=== PATIENT | male | born 1990 | race Two or more races ===

== ENCOUNTER 2019-08-22 05:55 | Emergency (ER) | payer SELFPAY ==
[~2019-08-22] VITALS: Ht 170.2 cm; Wt 85.0 kg
--- NOTE | 2019-08-22 06:07 | NUR ---
PT AMBULATORY TO ROOM, STEADY GAIT.
[2019-08-22] MEDS ORDERED: POTASSIUM (06:15)
--- NOTE | 2019-08-22 06:16 | NUR ---
THIS PT IS COMING FROM HOME. HE FEELS WEAK. PREVIOUSLY, AROUND AGE 21, HE HAD HYPOKALEMIA, FOR WHICH HE HAD TO BE HOSPITALIZED, PT STATES THIS FEELS THE SAME. CURRENTLY THIS PT IS LAYING IN BED, CONNECTED TO CARDIAC, O2 AND BP MONITORS, VSS, RESPIRATIONS EVEN AND UNLABORED, DENIES PAIN. WILL CONTINUE TO MONITOR AND WATCH FOR ORDERS, ERP HAS BEEN TO BEDSIDE.
[2019-08-22 06:19] VITALS: BP 133/88
[2019-08-22 06:47] LABS: BASOPHILS # (AUTO) 0.03 x10^3/uL (0-0.1); BASOPHILS % (AUTO) 1 % (0-1); EOSINOPHILS # (AUTO) 0.16 x10^3/uL (0-0.4); EOSINOPHILS % (AUTO) 3 % (1-7); LYMPHOCYTES # (AUTO) 2.01 x10^3/uL (1-3.4); LYMPHOCYTES % (AUTO) 39 % (22-44); MD NO; MEAN CORPUSCULAR HEMOGLOBIN 32.3 pg (27.5-34.5); MEAN CORPUSCULAR HGB CONC 35.1 g/dL (33.2-36.2); MEAN CORPUSCULAR VOLUME 92.2 fL (81-97); MEAN PLATELET VOLUME 7.6 fL (7.4-10.4); MONOCYTES # (AUTO) 0.37 x10^3/uL (0.2-0.8); MONOCYTES % (AUTO) 7 % (2-9); NEUTROPHILS # (AUTO) 2.59 x10^3/uL (1.8-6.8); NEUTROPHILS % (AUTO) 50 % (42-75); PLATELET COUNT 232 x10^3/uL (130-400); RED BLOOD COUNT 4.42 x10^6/uL (4.38-5.82); RED CELL DISTRIBUTION WIDTH 12.7 % (9.4-14.8)
[2019-08-22 06:58] LABS: ALANINE AMINOTRANSFERASE 51 U/L (12-78); ALBUMIN 3.5 g/dL (3.4-5.0); ANION GAP 10 mmol/L (5-15); CALCIUM 8.2 mg/dL (8.5-10.1); CHLORIDE 113 mmol/L (98-107); CREATININE 0.83 mg/dL (0.7-1.3)
--- NOTE | 2019-08-22 06:59 | NUR ---
BEDSIDE REPORT GIVEN TO SARAHI MELENDEZ. PT CONDITION UNCHANGED. CALL LIGHT IN REACH.
--- NOTE | 2019-08-22 07:00 | NUR ---
[facility] BEDSIDE HAND-OFF REPORT RECEIVED FROM SARAHI ESTEVEZ. ASSUMING CARE OF PATIENT.
[2019-08-22 07:08] LABS: ALKALINE PHOSPHATASE 88 U/L (45-117); BILIRUBIN,TOTAL 0.2 mg/dL (0.2-1.0); TOTAL PROTEIN 7.3 g/dL (6.4-8.2)
[2019-08-22] MEDS ORDERED: POTASSIUM CHLORIDE 20 MEQ TAB.ER.PRT ONE (07:17)
[2019-08-22] MEDS ORDERED: POTASSIUM CHLORIDE 20 MEQ TAB.ER.PRT PO ONE (07:30)
--- NOTE | 2019-08-22 08:25 | NUR ---
Patient given discharge instructions and they have confirmed that they understand the instructions. Patient ambulatory with steady gait.
== END 2019-08-22 08:26 | disposition home or self-care (01) ==
LOC: ED 06:29
DX: E87.6 Hypokalemia (principal); R00.0 Tachycardia, unspecified; R94.31 Abnormal electrocardiogram [ECG] [EKG]
CPT/HCPCS: 36415; 71045; 80053; 83735; 83880; 84443; 85025; 93005; 99285